=== PATIENT | male | born 1955 | race African-American/Black ===

== ENCOUNTER → 2016-06-26 | Outpatient (CLI) | payer OTHER ==
--- NOTE | 2016-06-26 13:36 | RAD ---
Lumbar spine, 5 views, 06/26/2016: History: Twisting injury to back The lumbar vertebral heights are well-maintained. The intervertebral disc spaces are well preserved. There are mild scattered marginal spurs. There is no evidence of spondylolysis.. The paraspinous soft tissues are unremarkable. IMPRESSION: 1. Mild marginal spurring. 2. No acute lumbar spine abnormality is detected.
== END | disposition home or self-care (01) ==
LOC: RAD 12:57
DX: S39.012A Strain of muscle, fascia and tendon of lower back, initial encounter (principal); M47.896 Other spondylosis, lumbar region
CPT/HCPCS: 72110